=== PATIENT | female | born 1975 | race African-American/Black ===

== ENCOUNTER 2024-07-02 18:40 | Emergency (ER) | payer BC, OTHER ==
[~2024-07-02] VITALS: Ht 157.5 cm; Wt 59.0 kg
[2024-07-02 18:42] VITALS: BP 156/88; PULSE 132; RESP 16; TEMP 37.1; O2SAT 100; O2SAT 97
[2024-07-02 19:55] LABS: BASOPHILS % 0.3 % (0.0-2.0); DIFFERENTIAL COMMENT 0; EOSINOPHILS % 0.3 % (0.0-5.0); HEMATOCRIT. 36.8 % (36.0-48.0); HEMOGLOBIN. 12.2 g/dL (12.0-16.0); LYMPHOCYTES % 23.5 % (20.0-50.0); MEAN CORPUSCULAR HEMOGLOBIN 34.1 pg (28.0-32.0); MEAN CORPUSCULAR HGB CONC 33.1 g/dL (31.0-37.0); MEAN PLATELET VOLUME 8.1 fl (7.4-10.4); MONOCYTES % 6.5 % (2.0-8.0); NEUTROPHILS % 69.4 % (40.0-76.0); PLATELET 296 x1000/uL (130-400); RED BLOOD CELL COUNT 3.57 mill/uL (4.2-5.4); RED CELL DISTRIBUTION WIDTH 12.9 % (11.6-14.6); WHITE BLOOD COUNT 9.1 x1000/uL (4.5-11.0)
[2024-07-02 19:59] LABS: CARBON DIOXIDE 23 mEq/L (21-32); CHLORIDE 106 mEq/L (98-107); POTASSIUM 3.4 mEq/L (3.5-5.1); SODIUM 142 mEq/L (136-145)
[2024-07-02 20:00] LABS: CALCIUM 9.9 mg/dL (8.7-10.4)
[2024-07-02 20:05] LABS: CREATININE 0.8 mg/dL (0.6-1.0); GLUCOSE 111 mg/dL (70-105); UREA NITROGEN BLOOD 17 mg/dL (9-23)
[2024-07-02 20:07] LABS: ALANINE AMINOTRANSFERASE 17 IU/L (10-49); ALBUMIN 4.2 g/dL (3.2-4.8); ASPARTATE AMINOTRANSFERASE 34 IU/L (<34); BILIRUBIN TOTAL 0.4 mg/dL (0.1-1.0); PROTEIN TOTAL 7.4 g/dL (6.0-8.3)
[2024-07-02 20:43] LABS: CLARITY URINE CLOUDY (CLEAR); COLOR URINE YELLOW (YELLOW); GLUCOSE URINE NEGATIVE (NEGATIVE); KETONES URINE 1+ (NEGATIVE); LEUKOCYTE ESTERASE URINE TRACE (NEGATIVE); NITRITE URINE NEGATIVE (NEGATIVE); OCCULT BLOOD URINE 2+ (NEGATIVE); PH URINE 5.5 (4.5-8.0); PROTEIN URINE 2+ (NEGATIVE); SPECIFIC GRAVITY URINE 1.025 (1.005-1.030)
[2024-07-02 21:08] LABS: BACTERIA URINE 1+; SQUAMOUS EPITHELIAL CELL URINE 1+ /lpf (RARE/1+)
[2024-07-02] MEDS: DEXAMETHASONE 10 MG/ML VIAL PO ONE (21:35)
[2024-07-02] MEDS: ONDANSETRON HCL 4MG TABLET PO ONE (21:35)
[2024-07-02] MEDS: FAMOTIDINE 20MG TABLET PO ONE (21:35)
[2024-07-02] MEDS ORDERED: NAPR-1176 MT (22:43)
[2024-07-02] MEDS ORDERED: ONDA4TAB50 MT (22:43)
[2024-07-02] MEDS ORDERED: DIPHENHYDRAMINE 50MG CAPSULE PO ONE (23:15)
[2024-07-02] MEDS: DIPHENHYDRAMINE 25MG CAPSULE PO NR (23:29)
== END 2024-07-02 23:30 | disposition home or self-care (01) ==
LOC: ER 18:40
DX: T78.3XXA Angioneurotic edema, initial encounter (principal); Z79.1 Long term (current) use of non-steroidal anti-inflammatories (NSAID); Z79.52 Long term (current) use of systemic steroids; X58.XXXA Exposure to other specified factors, initial encounter; Y93.89 Activity, other specified; Y92.89 Other specified places as the place of occurrence of the external cause; Y99.8 Other external cause status
CPT/HCPCS: 99284; 71045; 80053; 81003; 81025; 83880; 85025; 36415; Q0163; Q0162; J1100